=== PATIENT | male | born 1985 | race African-American/Black ===

== ENCOUNTER 2018-10-30 17:43 | Emergency (ER) | payer SELFPAY ==
[2018-10-30 17:48] VITALS: BP 132/71; PULSE 71; RESP 14; TEMP 36.5; O2SAT 98; BMI 25.2
--- NOTE | 2018-10-30 18:22 | ED.WOUNDLAC ---
HPI - Wound/Laceration <CHERYL Lopez - Last Filed: 10/30/18 22:49> General Chief Complaint: Wound/Laceration Stated Complaint: laceration to right hand/pinky Time Seen by Provider: 10/30/18 18:13 Source: patient Mode of arrival: ambulatory Limitations: no limitations History of Present Illness HPI narrative: 33-year-old healthy male, presents emergency department today with his family this complaining of a laceration to the proximal part of 5th phalanges of right hand after grabbing a sharp rock. States that his tetanus is up-to-date bleeding was controlled with pressure, denies tingling loss of range of motion, or loss of sensation. Denies fevers, chills, chest pain, shortness of breath, significant medical problems. Related Data Allergies Allergy/AdvReac Type Severity Reaction Status Date / Time No Known Drug Allergies Allergy Verified 10/30/18 17:48 Review of Systems <CHERYL Lopez - Last Filed: 10/30/18 22:49> Review of Systems REVIEW OF SYSTEMS: GENERAL: Denies fever or chills. CARDIOVASCULAR: No chest pain or syncope. RESPIRATORY: No shortness of breath or cough. GASTROINTESTINAL: No nausea, vomiting, diarrhea, or constipation. MUSCULOSKELETAL: Complains of limb, see HPI. INTEGUMENTARY: Complains of laceration, see HPI.. NEURO: No numbness, tingling, memory loss, or confusion. PFS <CHERYL Lopez - Last Filed: 10/30/18 22:49> Medical History No significant medical problems (Acute) Social History (Updated 10/30/18 @ 22:45 by CHERYL Lopez) Smoking Status: Never smoker Social History Smoking Status: Never smoker Exam <CHERYL Lopez - Last Filed: 10/30/18 22:49> Initial Vital Signs Initial Vital Signs: Vital Signs Temperature 97.7 F 10/30/18 17:48 Pulse Rate 71 10/30/18 17:48 Respiratory Rate 14 10/30/18 17:48 Blood Pressure 132/71 10/30/18 17:48 Pulse Oximetry 98 10/30/18 17:48 PHYSICAL EXAMINATION: GENERAL: Well groomed, alert, and cooperative Answers questions promptly and appropriately. Vital signs noted. MUSCULOSKELETAL: Normal gait and coordination. Equal tone and mass bilaterally. . EXTREMITIES: 3 cm linear laceration to the palmar aspect of the base of the 5th metatarsal of right. CMS intact. SKIN: Warm, dry, soft, appropriate color for ethnicity. No lesions, rashes, or wounds. NEURO: Alert and Oriented X 3. Good coordination. No ataxia, or sensory deficits, or cognitive issues. PSYCH: Appropriate affect and mood. <Speedy Gilmore DO - Last Filed: 10/31/18 00:33> Initial Vital Signs Initial Vital Signs: Vital Signs Temperature 97.7 F 10/30/18 17:48 Pulse Rate 71 10/30/18 17:48 Respiratory Rate 14 10/30/18 17:48 Blood Pressure 132/71 10/30/18 17:48 Pulse Oximetry 98 10/30/18 17:48 Procedures <CHERYL Lopez - Last Filed: 10/30/18 22:49> Laceration Repair Right 5th digit: Site: hand Side (If applicable): right Size (cm): 3 Description: linear Depth: simple, single layer Local Anesthetic: lidocaine 1% and with bicarb Amount of anesthesia used (mL): 6 Pre-repair: wound explored Skin layer closed with: nylon Size (cm): 5-0 Number of sutures: 3 Technique: simple, interrupted Course <CHERYL Lopez - Last Filed: 10/30/18 22:49> Course Narrative: Wound care instructions given to patient, patient tolerated procedure well. Consultations Consultation #1: The patient was staffed with Dr. Gilmore whom agrees with plan of care. Vital Signs - 8 hr 10/30/18 17:48 10/30/18 19:10 Temperature 97.7 F Pulse Rate 71 54 L Respiratory Rate 14 18 Blood Pressure 132/71 116/61 Pulse Oximetry 98 100 <DO Faraz Moreno Last Filed: 10/31/18 00:33> Vital Signs - 8 hr 10/30/18 17:48 10/30/18 19:10 Temperature 97.7 F Pulse Rate 71 54 L Respiratory Rate 14 18 Blood Pressure 132/71 116/61 Pulse Oximetry 98 100 MDM - Wound/Laceration <CHERYL Lopez - Last Filed: 10/30/18 22:49> Medical Records Attestation: I reviewed the patient's medical records. Lab Data Attestation: I reviewed the patient's lab results. MDM Narrative Medical decision making narrative: Simple laceration repair without concern for foreign bodies due to wound exploration and sufficient irrigation with saline. Discharge Plan Departure Patient Disposition: Home Clinical Impression: Laceration Discharge Date/Time: 10/30/18 19:10 Interventions: ED Discharge Assessment Last Done: 10/30/18 19:10 Instructions: DI for Laceration Repair Activity Restrictions/Additional Instructions: Thank you for entrusting me with your care today. As discussed, you have 3 sutures placed in your wound. Please leave the dressing in place for 24 hours, and wear the finger splint for 3 days. After 24 hours he may remove the dressing and gently rinse the wound. Apply Neosporin to the area each time he dress the wound to prevent the dressing from sticking. Follow up with her primary care provider for suture removal in 7 days. Monitor for signs of infection such as increased redness, increased swelling, pus, or fever. <Speedy Gilmore DO - Last Filed: 10/31/18 00:33> Cosign ED Attending Moriah Attestation: I was available for consultation during this patient's emergency department encounter
[2018-10-30 19:10] VITALS: BP 116/61; PULSE 54; RESP 18; O2SAT 100
--- NOTE | 2018-10-30 19:15 | PC.NURSE ---
Telfa and splint applied prior to d/c
== END 2018-10-30 19:10 | disposition home or self-care (01) ==
PROVIDERS: Emergency Provider Nurse Practitioner
DX: S61.216A Laceration without foreign body of right little finger without damage to nail, initial encounter (principal); W26.8XXA Contact with other sharp object(s), not elsewhere classified, initial encounter
CPT/HCPCS: 12002; 99282; 99283